=== PATIENT | female | born 1985 | race Caucasian/White ===

== ENCOUNTER 2022-05-17 07:00 | Emergency (ER) | payer SELFPAY ==
[~2022-05-17] VITALS: Ht 160 cm; Wt 88.5 kg
[2022-05-17 07:51] VITALS: BP 124/75
--- NOTE | 2022-05-17 07:59 | NUR ---
Patient being evaluated by DR SOARES at [facility].
[2022-05-17] MEDS ORDERED: NACL 0.9% 1,000 ML IV ONE (08:10)
[2022-05-17] MEDS ORDERED: ACETAMINOPHEN EXTRA STRENGTH 500 MG TAB PO ONE (08:10)
[2022-05-17] MEDS ORDERED: ONDANSETRON 4 MG/2 ML VIAL IVP ONE (08:10)
--- NOTE | 2022-05-17 08:20 | NUR ---
Patient ambulated to bed 04 with steady/even gait.
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
[2022-05-17 08:28] LABS: BASOPHILS % (AUTO) 0.3 % (0.0-2.0); EOSINOPHILS # (AUTO) 0.1 K/uL (0-0.4); HEMATOCRIT 39.3 % (36-48); HEMOGLOBIN 13.3 g/dL (12.0-16.0); LYMPHOCYTES # (AUTO) 1.5 K/uL (2.5-16.5); MEAN CORPUSCULAR HEMOGLOBIN 32 pg (27-31); MEAN CORPUSCULAR HGB CONC 34 g/dL (33-37); MEAN CORPUSCULAR VOLUME 94.6 fL (80-94); MONOCYTES % (AUTO) 7.6 % (1.7-9.3); NEUTROPHILS # (AUTO) 10.9 K/uL (1.8-7.7); NEUTROPHILS % (AUTO) 80.1 % (42.2-75.2); PLATELET COUNT (AUTO) 254 K/uL (140-450); RED BLOOD CELL COUNT(AUTO) 4.16 MIL/uL (4.20-5.40); RED CELL DISTRIBUTION WIDTH 13.7 % (11.6-13.7); WHITE BLOOD COUNT (AUTO) 13.6 K/uL (4.8-10.8)
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
[2022-05-17 09:24] LABS: ALBUMIN 3.3 g/dL (3.4-5.0); ANION GAP 12.5 (8-16); CARBON DIOXIDE 27.6 mmol/L (21-32); CREATININE 0.9 mg/dL (0.6-1.3); POTASSIUM 4.1 mmol/L (3.5-5.1); TOTAL BILIRUBIN 0.3 mg/dL (0.0-1.0)
--- NOTE | 2022-05-17 09:30 | NUR ---
Pt transported to CT via [facility]
[2022-05-17 09:32] VITALS: BP 108/72
--- NOTE | 2022-05-17 09:45 | NUR ---
Pt returned from CT via [facility].
[2022-05-17] MEDS ORDERED: CYCL-711 PO (10:57)
[2022-05-17] MEDS ORDERED: NAPR-54 PO (10:57)
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
== END 2022-05-17 11:11 | disposition home or self-care (01) ==
LOC: MED 07:00
DX: S30.1XXA Contusion of abdominal wall, initial encounter (principal); S20.212A Contusion of left front wall of thorax, initial encounter; M25.512 Pain in left shoulder; V49.88XA Car occupant (driver) (passenger) injured in other specified transport accidents, initial encounter; Y93.89 Activity, other specified; Y92.89 Other specified places as the place of occurrence of the external cause; Y99.8 Other external cause status
CPT/HCPCS: 36415; 70450; 71275; 72125; 73030; 74174; 80053; 81025; 85025; 96361; 96374; 99285; J2405; Q9967